=== PATIENT | male | born 1960 | race Caucasian/White ===

== ENCOUNTER 2021-06-26 20:46 | Emergency (ER) | payer SELFPAY ==
[2021-06-26] MEDS ORDERED: LORazepam 2 MG/ML VIAL ONE (23:30)
[2021-06-26] MEDS ORDERED: NA CHLORIDE 0.9% 500 ML ONE (23:31)
[2021-06-26] MEDS ORDERED: KETOROLAC 30 MG/ML INJ ONE (23:31)
[2021-06-26 23:34] LABS: Absolute Lymphocytes (CBC) 1.5 K/uL (0.7-4.9); Basophils % 0.8 % (0-1.3); Hematocrit 47.5 % (39.6-49.0); Lymphocytes % 16.9 % (15.3-44.8); MPV 7.7 fL (7.6-11.3); RBC Red Blood Cell Count 5.61 M/uL (4.33-5.43)
[2021-06-26 23:35] LABS: Protime INR 1.23
[2021-06-26 23:52] LABS: Albumin 2.9 g/dL (3.4-5.0); Bilirubin Direct 0.2 mg/dL (0-0.2); Bilirubin Total 0.4 mg/dL (0.2-1.0); Magnesium 1.9 mg/dL (1.8-2.4); Potassium 4.2 mmol/L (3.5-5.1); Protein, Total 6.3 g/dL (6.4-8.2); Troponin (Emerg Dept Use Only) 0.02 ng/mL (0.0-0.045)
[2021-06-27] MEDS ORDERED: NA CHLORIDE 0.9% 500 ML ONE (01:18)
[2021-06-27 01:46] LABS: Urine Blood Negative (Negative); Urine Glucose Negative (Negative); Urine Protein Negative (Negative); Urine Specific Gravity 1.025 (1.005-1.030)
[2021-06-27 02:12] LABS: Barbiturates NEGATIVE (NEGATIVE); Benzodiazepines NEGATIVE (NEGATIVE); Cocaine NEGATIVE (NEGATIVE); METHAMPHETAM POSITIVE (NEGATIVE); Methadone NEGATIVE (NEGATIVE); Opiates NEGATIVE (NEGATIVE); Phencyclidine NEGATIVE (NEGATIVE); THC Cannibis NEGATIVE (NEGATIVE)
[2021-06-27 02:49] LABS: Urine Amorphous Sediment 2+ /HPF (NONE SEEN); Urine Bacteria <20 /HPF (NONE SEEN); Urine RBC NONE SEEN /HPF (NONE SEEN)
--- NOTE | 2021-06-27 03:51 | EDPHYS ---
Physician Documentation [facility] Name: Get Ceballos Age: 60 yrs Sex: Male : 1960 Arrival Date: 06/26/2021 Time: 20:47 Bed 12 Private MD: ED Physician Misael Yousif HPI: 06/26 23:00 This 60 yrs old Male presents to ER via Ambulatory with complaints of Skin cp Sore(s), Urinary Problem, Fall Injury, Shoulder Pain, Pain With Urination. 23:00 The patient or guardian complains of an injury, pain, that is acute. cp 23:00 right shoulder. Context: The problem was sustained at home, resulted from a fall, from cp a standing position. Onset: The symptoms/episode began/occurred today. The patient presents with urinary symptoms, dysuria, difficulty voiding. 23:00 Patient reports increasing difficulty voiding and burning with urination recently. cp While standing to urinate tonight, patient reports LOC and falling to ground striking right shoulder. Patient admits to methamphetamine use with last use 2 days ago. Patient denies chest and/or abdominal pain. Patient also concerned about "skin sores". Historical: - Allergies: 21:16 NKA; vg1 - PMHx: 21:16 Hypertension; vg1 - Immunization history:: Adult Immunizations up to date. - Social history:: Smoking status: Patient reports the use of cigarette tobacco products, smokes one-half pack cigarettes per day. ROS: 23:05 Constitutional: Negative for body aches, chills, fever, poor PO intake. cp 23:05 Eyes: Negative for injury, pain, redness, and discharge. cp 23:05 Cardiovascular: Negative for chest pain, edema, palpitations. 23:05 Respiratory: Negative for cough, shortness of breath, wheezing. 23:05 Abdomen/GI: Negative for abdominal pain, nausea, vomiting, and diarrhea. 23:05 : Positive for difficulty urinating, Negative for testicular pain 23:05 MS/extremity: Positive for injury or acute deformity, pain, of the right shoulder and right scapula, painful ROM. 23:05 Neuro: Negative for altered mental status, dizziness, headache, weakness. 23:05 All other systems are negative. Exam: 23:10 Constitutional: The patient appears in no acute distress, alert, awake, cp non-diaphoretic, non-toxic, well developed, well nourished, anxious. 23:10 Head/Face: Normocephalic, atraumatic. cp 23:10 Eyes: Periorbital structures: appear normal, Pupils: equal, round, and reactive to light and accomodation, Extraocular movements: intact throughout, Conjunctiva: normal, no exudate, no injection, Sclera: no appreciated abnormality, Lids and lashes: appear normal, bilaterally. 23:10 ENT: External ear(s): are unremarkable, Ear canal(s): are normal, clear, TM's: dullness, bilaterally, Nose: is normal, Mouth: Lips: moist, Oral mucosa: moist, Posterior pharynx: Airway: no evidence of obstruction, patent. 23:10 Neck: C-spine: vertebral tenderness, is not appreciated, crepitus, is not appreciated, ROM/movement: pain, is not appreciated, limited range of motion, is not appreciated. 23:10 Chest/axilla: Inspection: normal, Palpation: is normal, no crepitus, no tenderness. 23:10 Cardiovascular: Rate: normal, Rhythm: regular, Edema: is not appreciated, JVD: is not appreciated. 23:10 Respiratory: the patient does not display signs of respiratory distress, Respirations: normal, no use of accessory muscles, no retractions, labored breathing, is not present, Breath sounds: are clear throughout, no decreased breath sounds, no stridor, no wheezing. 23:10 Abdomen/GI: Inspection: abdomen appears normal, Palpation: abdomen is soft and non-tender, in all quadrants. 23:10 Back: pain, that is moderate, of the right scapular area, ROM is normal, vertebral tenderness, is not appreciated. 23:10 Musculoskeletal/extremity: Extremities: grossly normal except: noted in the right shoulder: pain, tenderness, There is no evidence of decreased ROM, deformity, ROM: limited passive range of motion due to pain, in the right shoulder. 23:10 Neuro: Orientation: to person, place \\T\\ time. Mentation: is normal, Motor: moves all fours, strength is normal, Gait: is steady. 23:10 Psych: Behavior/mood is cooperative, anxious, Affect is animated, Judgement / Insight is normal. Delusions/hallucinations are not present. 23:43 ECG was reviewed by the Attending Physician. cp Vital Signs: 21:13 BP 138 / 92; Pulse 90; Resp 18; Temp 99.0(O); Pulse Ox 95% on R/A; Weight 104.33 kg; vg1 Height 5 ft. 11 in. (180.34 cm); Pain 10/10; 23:41 BP 119 / 98; Pulse 85; Resp 20 S; Pulse Ox 96% on R/A; bb 06/27 01:37 BP 148 / 88; Pulse 81; Resp 18; Pulse Ox 96% on R/A; bb 03:00 BP 160 / 102; Pulse 80; Resp 18 S; Pulse Ox 95% on R/A; bb 05:25 BP 144 / 89; Pulse 73; Resp 16 S; Pulse Ox 97% on R/A; bb 06/26 21:13 Body Mass Index 32.08 (104.33 kg, 180.34 cm) vg1 MDM: 06/26 22:40 Patient medically screened. cp 23:00 Differential diagnosis: Anterior dislocation with fracture, Anterior dislocation cp without fracture, Posterior dislocation with fracture, Posterior dislocation without fracture, humeral head fracture, glenoid fracture, tendonitis, UTI, urinary retention, prostatitis, cervical spine fracture, scapula fracture. 06/27 03:47 Data reviewed: vital signs, nurses notes, lab test result(s), EKG, radiologic studies, cp CT scan, plain films, and as a result, I will discharge patient. Test interpretation: by ED physician or midlevel provider: ECG, plain radiologic studies. Counseling: I had a detailed discussion with the patient and/or guardian regarding: the historical points, exam findings, and any diagnostic results supporting the discharge/admit diagnosis, lab results, radiology results, the need for outpatient follow up, a family practitioner, to return to the emergency department if symptoms worsen or persist or if there are any questions or concerns that arise at home. 03:50 Response to treatment: the patient's symptoms have markedly improved after treatment. cp 03:50 ED course: VSS. Labs, EKG and radiology studies reviewed. Xrays negative for fracture. cp Will discharge to home for continued monitoring. 06/26 22:53 Order name: Basic Metabolic Panel; Complete Time: 00:12 cp 06/27 00:12 Interpretation: Normal except: GFR 70. cp 06/26 22:53 Order name: CBC with Diff; Complete Time: 23:42 cp 08/ 23:42 Interpretation: Normal except: RBC 5.61; MCV 84.7; RDW 19.2. cp / 22:53 Order name: LFT's; Complete Time: 00:12 cp /16 00:12 Interpretation: Normal except: AST 45; TP 6.3; ALB 2.9; A/G 0.9. cp / 22:53 Order name: Magnesium; Complete Time: 00:12 cp 06/26 22:53 Order name: NT PRO-BNP; Complete Time: 00:12 cp / 22:53 Order name: PT-INR; Complete Time: 23:42 cp /16 02:31 Interpretation: PT 14.2; Reviewed. / 22:53 Order name: CT Head C Spine / 22:53 Order name: XRAY Shoulder RIGHT 2 view / 22:53 Order name: Troponin (emerg Dept Use Only); Complete Time: 00:12 cp / 00:12 Interpretation: Within normal limits: TROPED 0.02. / 22:53 Order name: XRAY Chest (1 view) cp / 22:53 Order name: UDS; Complete Time: 02:30 cp /16 02:31 Interpretation: Normal except: METHAMPHETAMINE POSITIVE. cp / 23:42 Order name: Urine Microscopic Only; Complete Time: 02:51 cp /16 02:51 Interpretation: Normal except: AMORPH 2+. cp /16 01:02 Order name: Scapula Right XRAY cp / 01:46 Order name: Urine Dipstick-Ancillary; Complete Time: 02:30 EDMS 06/26 22:53 Order name: EKG; Complete Time: 22:54 cp / 22:53 Order name: Cardiac monitoring; Complete Time: 02:15 cp 06/26 22:53 Order name: EKG - Nurse/Tech; Complete Time: 23:40 cp 06/26 22:53 Order name: IV Saline Lock; Complete Time: 23:40 cp 06/26 22:53 Order name: Labs collected and sent; Complete Time: 23:40 cp 06/26 22:53 Order name: O2 Per Protocol; Complete Time: 23:40 cp 06/26 22:53 Order name: O2 Sat Monitoring; Complete Time: 23:40 cp 06/26 23:42 Order name: Urine Dipstick-Ancillary (obtain specimen); Complete Time: 01:37 06/27 03:54 Order name: Sling cp EC/15 23:43 Rate is 82 beats/min. Rhythm is regular. VT interval is normal. QRS interval is cp prolonged at 142 msec. QT interval is normal. T waves are Inverted in leads III, aVR. Interpreted by me. Reviewed by me. Administered Medications: 23:15 Drug: NS 0.9% 500 ml Route: IV; Rate: bolus; Site: right forearm; bb 06/27 00:00 Follow up: IV Status: Completed infusion; IV Intake: 500ml 06/26 23:15 Drug: Ketorolac 15 mg Route: IVP; Site: right forearm; 06/27 00:53 Follow up: Response: No adverse reaction 06/26 23:17 Drug: Ativan (LORazepam) 1 mg Route: IVP; Site: right forearm; 06/27 00:00 Follow up: Response: Marked relief of symptoms bb 00:57 Drug: NS 0.9% 500 ml Route: IV; Rate: bolus; Site: right forearm; 01:37 Follow up: IV Status: Completed infusion; IV Intake: 500ml bb Disposition: 07:18 Co-signature as Attending Physician, Misael Yousif MD. [email or web address] Disposition Summary: 06/27/21 03:51 Discharge Ordered Location: Home cp Problem: new cp Symptoms: have improved cp Condition: Stable cp Diagnosis - Pain in right shoulder cp - Disorder of urinary system, unspecified cp - Adverse effect of amphetamines cp Followup: cp - With: Private Physician - When: 2 - 3 days - Reason: Recheck today's complaints Followup: cp - With: Artem Hester MD - When: 2 - 3 days - Reason: difficulty urinating Discharge Instructions: - Discharge Summary Sheet cp - Shoulder Pain cp - Shoulder Range of Motion Exercises cp - Methamphetamines Use Disorder cp - Heat Therapy cp - Benign Prostatic Hyperplasia cp - Prostate Cancer Screening cp Forms: - Medication Reconciliation Form cp - Thank You Letter cp - Antibiotic Education cp - Prescription Opioid Use cp Prescriptions: - Lidoderm 5 % Topical adhesive patch,medicated - apply 1 patch by TOPICAL route once daily; 1 box; Refills: 0, Product Selection cp Permitted - Naprosyn 500 mg Oral Tablet - take 1 tablet by ORAL route 2 times per day take with food; 20 tablet; Refills: cp 0, Product Selection Permitted Signatures: Dispatcher [employer] Juana White RN RN bb Jj Slater PA PA cp Garcia, Victoria, RN RN vg1 Misael Yousif MD MD [email or web address] Corrections: (The following items were deleted from the chart) 01:37 00:47 Bladder Scanner ordered. olga gipson
--- NOTE | 2021-06-27 03:51 | ER ---
Nurse's Notes [facility] Name: Get Ceballos Age: 60 yrs Sex: Male : 1960 Arrival Date: 06/26/2021 Time: 20:47 Bed 12 Private MD: Diagnosis: Pain in right shoulder;Disorder of urinary system, unspecified;Adverse effect of amphetamines Presentation: 06/26 21:13 Chief complaint: Patient states: Pt has has reddish/orange color urine for about two vg1 weeks, states julio to urinate, urinates frequently and sometimes has dribbling. Stated today fainted while urinating and woke up on the floor, states incident happened around 1930. Denies hitting head. States Right Shoulder hurts, rates pain 10/10. Also states has been vomiting for about 3 days and has sores all over body. Coronavirus screen: Client denies travel out of the [place] in the last 14 days. Ebola Screen: Patient negative for fever greater than or equal to 101.5 degrees Fahrenheit, and additional compatible Ebola Virus Disease symptoms. Initial Sepsis Screen: Does the patient meet any 2 criteria? No. Patient's initial sepsis screen is negative. Does the patient have a suspected source of infection? No. Patient's initial sepsis screen is negative. Risk Assessment: Do you want to hurt yourself or someone else? Patient reports no desire to harm self or others. Onset of symptoms was June 19, 2021. 21:13 Method Of Arrival: Ambulatory vg1 21:13 Acuity: JOANNA 3 vg1 Triage Assessment: 21:16 General: Appears in no apparent distress. uncomfortable, Behavior is cooperative, vg1 anxious. Pain: Complains of pain in right shoulder Pain currently is 10 out of 10 on a pain scale. Pain began 2 hours ago. Historical: - Allergies: 21:16 NKA; vg1 - PMHx: 21:16 Hypertension; vg1 - Immunization history:: Adult Immunizations up to date. - Social history:: Smoking status: Patient reports the use of cigarette tobacco products, smokes one-half pack cigarettes per day. Screenin:47 Abuse screen: Denies threats or abuse. Nutritional screening: No deficits noted. bb Tuberculosis screening: No symptoms or risk factors identified. Fall Risk None identified. Assessment: 22:47 General: Appears in no apparent distress. Behavior is anxious. Neuro: Level of bb Consciousness is awake, alert, obeys commands, Oriented to person, place, time, situation. Cardiovascular: Capillary refill < 3 seconds Patient's skin is warm and dry. Respiratory: Respiratory effort is even, unlabored, Respiratory pattern is regular. GI: No deficits noted. No signs and/or symptoms were reported involving the gastrointestinal system. Derm: sores all over. Musculoskeletal: Circulation, motion, and sensation intact. 23:42 Reassessment: Patient is alert, oriented x 3, equal unlabored respirations, skin bb warm/dry/pink. IV site intact, patent with fluids infusing awaiting diagnostic results. 06/27 01:37 Reassessment: Patient is alert, oriented x 3, equal unlabored respirations, skin bb warm/dry/pink. urine sample collected, IV site intact, patent. 02:59 Reassessment: Patient is alert, oriented x 3, equal unlabored respirations, skin bb warm/dry/pink. pt ambulated with steady gait to bathroom awaiting radiology results. 05:24 Reassessment: pt appears to be sleeping, eyes closed, resp unlabored, arouses easily, bb verbalized understanding of and agrees to plan of care discharge instructions given pt ambulated with steady gait to exit. Vital Signs: 06/26 21:13 BP 138 / 92; Pulse 90; Resp 18; Temp 99.0(O); Pulse Ox 95% on R/A; Weight 104.33 kg; vg1 Height 5 ft. 11 in. (180.34 cm); Pain 10/10; 23:41 BP 119 / 98; Pulse 85; Resp 20 S; Pulse Ox 96% on R/A; bb 06/27 01:37 BP 148 / 88; Pulse 81; Resp 18; Pulse Ox 96% on R/A; bb 03:00 BP 160 / 102; Pulse 80; Resp 18 S; Pulse Ox 95% on R/A; bb 05:25 BP 144 / 89; Pulse 73; Resp 16 S; Pulse Ox 97% on R/A; bb 06/26 21:13 Body Mass Index 32.08 (104.33 kg, 180.34 cm) vg1 ED Course: 06/26 20:47 Patient arrived in ED. cf2 21:16 Triage completed. vg1 21:16 Arm band placed on. vg1 22:37 [facility]. cp 22:37 Yvon Rivas MD is Attending Physician. cp 22:37 Misael Yousif MD is Attending Physician. cp 22:47 Juana Burk, RN is Primary Nurse. bb 22:47 Patient has correct armband on for positive identification. Placed in gown. Bed in low bb position. Call light in reach. Side rails up X 1. 23:15 Initial lab(s) drawn, by me, sent to lab. Inserted saline lock: 18 gauge in right bb forearm, using aseptic technique. Blood collected. 23:40 XRAY Chest (1 view) Sent. bb 23:42 XRAY Shoulder RIGHT 2 view In Process Unspecified. EDMS 23:42 XRAY Chest (1 view) In Process Unspecified. EDMS 06/27 00:22 CT Head C Spine In Process Unspecified. EDMS 01:37 Urine collected: clean catch specimen, clear. bb 01:38 No provider procedures requiring assistance completed. bb 02:59 Scapula Right XRAY In Process Unspecified. EDMS 03:53 Artem Hester MD is Referral Physician. cp 05:24 IV discontinued, intact, bleeding controlled, No redness/swelling at site. Pressure bb dressing applied. Administered Medications: 06/26 23:15 Drug: NS 0.9% 500 ml Route: IV; Rate: bolus; Site: right forearm; bb 06/27 00:00 Follow up: IV Status: Completed infusion; IV Intake: 500ml bb 06/26 23:15 Drug: Ketorolac 15 mg Route: IVP; Site: right forearm; bb 06/27 00:53 Follow up: Response: No adverse reaction bb 06/26 23:17 Drug: Ativan (LORazepam) 1 mg Route: IVP; Site: right forearm; bb 06/27 00:00 Follow up: Response: Marked relief of symptoms bb 00:57 Drug: NS 0.9% 500 ml Route: IV; Rate: bolus; Site: right forearm; bb 01:37 Follow up: IV Status: Completed infusion; IV Intake: 500ml bb Intake: 00:00 IV: 500ml; Total: 500ml. bb 01:37 IV: 500ml; Total: 1000ml. bb Outcome: 03:51 Discharge ordered by . cp 05:25 Discharged to home ambulatory. bb 05:25 Condition: stable 05:25 Discharge instructions given to patient, Instructed on discharge instructions, follow up and referral plans. medication usage, Demonstrated understanding of instructions, follow-up care, medications, Prescriptions given X 2. 05:25 Patient left the ED. bb Signatures: Dispatcher [employer] EDJuana Mejía RN RN bb Jj Slater PA PA cp Frazier, Celesta cf2 Drea Amador RN RN vg1
[2021-06-27 05:37] VITALS: TEMP 99
[2021-06-27 05:44] VITALS: BP 144/89; O2SAT 97
--- NOTE | 2021-06-27 07:18 | RAD REPORT ---
EXAM DESCRIPTION: RAD - Chest Single View - 06/26/2021 11:42 pm CLINICAL HISTORY: right shoulder pain COMPARISON: Chest Single View dated 02/11/2017; Chest Single View dated 05/31/2016; Chest Pa And Lat (2 Views) dated 04/20/2016; CHEST PA AND LAT 2 VIEW dated 10/24/2015 FINDINGS: No evidence of edema or pneumonia. Heart size is upper limits of normal.No acute osseous a bnormality. No significant pleural effusions or pneumothorax. IMPRESSION: No acute cardiopulmonary disease.
--- NOTE | 2021-06-27 07:18 | RAD REPORT ---
EXAM DESCRIPTION: RAD - Shoulder Right 2 View - 06/26/2021 11:42 pm CLINICAL HISTORY: PAIN COMPARISON: Shoulder Right 2 View dated 09/06/2015 FINDINGS: No right shoulder fracture or dislocation is identified. IMPRESSION: No right shoulder fracture or dislocation.
--- NOTE | 2021-06-27 13:31 | RAD REPORT ---
EXAM DESCRIPTION: CT - Head C Spine Mpr Wo Con - 06/27/2021 7:15 am CLINICAL HISTORY: 60 years Male, PAIN COMPARISON: None. FINDINGS: No evidence of an acute fracture of the right scapula. No dislocation. Visualized right lung is clear. Small metallic density in the soft tissues near the mid right humerus is present which could represen t a foreign body. IMPRESSION: 1. No evidence for an acute fracture of the right scapula. 2. Small metallic density in the soft tissues near the mid right humerus could represent a foreign body. Electronically signed by: Cj Perez MD 06/27/2021 3:19 AM CDT Due to temporary technical issues with the PACS/Fluency reporting system, reports are being signed by the in house radiologist without review as a courtesy to ensure prompt reporting. The interpreting r adiologist is fully responsible for the content of the report.
--- NOTE | 2021-06-27 13:44 | RAD REPORT ---
EXAM DESCRIPTION: RAD - Scapula Right - 06/27/2021 2:59 am CLINICAL HISTORY: 60 years Male, PAIN COMPARISON: None. FINDINGS: No evidence of an acute fracture of the right scapula. No dislocation. Visualized right lung is clear. Small metallic density in the soft tissues near the mid right humerus is present which could represen t a foreign body. IMPRESSION: 1. No evidence for an acute fracture of the right scapula. 2. Small metallic density in the soft tissues near the mid right humerus could represent a foreign body. Electronically signed by: Cj Perez MD 06/27/2021 3:19 AM CDT Due to temporary technical issues with the PACS/Fluency reporting system, reports are being signed by the in house radiologist without review as a courtesy to ensure prompt reporting. The interpreting r adiologist is fully responsible for the content of the report.
== END 2021-06-27 05:25 | disposition home or self-care (01) ==
LOC: ER 20:46
DX: M25.511 Pain in right shoulder (principal); N39.9 Disorder of urinary system, unspecified; T43.625A Adverse effect of amphetamines, initial encounter; W18.30XA Fall on same level, unspecified, initial encounter; Y92.009 Unspecified place in unspecified non-institutional (private) residence as the place of occurrence of the external cause; I10 Essential (primary) hypertension; F17.210 Nicotine dependence, cigarettes, uncomplicated
CPT/HCPCS: 36415; 70450; 71045; 72125; 73010; 80048; 80076; 80307; 81003; 81015; 83735; 83880; 84484; 85025; 85610; 93005; 96361; 96374; 96375; 99284; J7040

== ENCOUNTER 2021-10-14 08:47 | Emergency (ER) | payer SELFPAY ==
[2021-10-14 09:13] LABS: Absolute Lymphocytes (CBC) 1.2 K/uL (0.7-4.9); Basophils % 0.7 % (0-1.3); Hematocrit 55.8 % (39.6-49.0); Lymphocytes % 14.1 % (15.3-44.8); RBC Red Blood Cell Count 6.24 M/uL (4.33-5.43)
[2021-10-14 09:23] LABS: Protime INR 1.24
[2021-10-14 09:43] LABS: Albumin 2.9 g/dL (3.4-5.0); Bilirubin Direct 0.3 mg/dL (0-0.2); Bilirubin Total 0.7 mg/dL (0.2-1.0); Magnesium 2.1 mg/dL (1.8-2.4); Potassium 4.5 mmol/L (3.5-5.1); Protein, Total 6.8 g/dL (6.4-8.2); Troponin (Emerg Dept Use Only) 0.04 ng/mL (0.0-0.045)
--- NOTE | 2021-10-14 10:16 | RAD REPORT ---
EXAM DESCRIPTION: CT - Chest For Pe Angio - 10/14/2021 10:00 am CLINICAL HISTORY: chest pain, sob COMPARISON: CTANGIO CHEST FOR PE dated 07/01/2015; Abdomen Pelvis W Contrast dated 10/14/2021 FINDINGS: Chest Wall: No suspicious thyroid nodules or pathologic lymphadenopathy. Lungs: Mild bronchial wall thickening. Pleura: No significant effusions or pneumothorax. Mediastinum/isha: No pathologic lymphadenopathy. Pulmonary arteries/Aorta: No filling defect identified. No aortic aneurysm. Heart: No significant pericardial effusion. Normal heart size. Upper abdomen: No acute abnormality. Bones: No acute abnormality. All CT scans are performed using dose optimization technique as appropriate and may include automated exposure control or mA/KV adjustment according to patient size. IMPRESSION: Negative for pulmonary embolism. Mild bronchial wall thickening which is nonspecific. No other acute findings are identified.
--- NOTE | 2021-10-14 10:31 | RAD REPORT ---
EXAM DESCRIPTION: CTAbdomen Pelvis W Contrast - 10/14/2021 10:00 am CLINICAL HISTORY: ABD PAIN COMPARISON: Chest For Pe Angio dated 10/14/2021 TECHNIQUE: CT of the abdomen and pelvis was performed. All CT scans are performed using dose optimization technique as appropriate and may include automated exposure control or mA/KV adjustment according to patient size. FINDINGS: Lower chest: Reference same-day chest CT. Liver: No acute abnormality or suspicious lesions. Biliary: No biliary ductal dilatation. Stomach: No significant focal abnormality. Duodenum: No significant focal abnormality. Pancreas: No significant abnormality. Spleen: No significant abnormality. Adrenal: No suspicious lesions. Kidney/ureter: No hydronephrosis. No renal calculi. Retroperitoneum: No retroperitoneal adenopathy. Vascular: No aneurysm. Bowel: No significant focal abnormality. Normal appendix. Peritoneum: No ascites or free air. Bladder: Grossly unremarkable. Reproductive: No adnexal masses. Bones: No acute fracture. Other: n/a IMPRESSION: No acute intra-abdominal or pelvic finding.
--- NOTE | 2021-10-14 10:31 | RAD REPORT ---
EXAM DESCRIPTION: RAD - Chest Single View - 10/14/2021 10:14 am CLINICAL HISTORY: SOB COMPARISON: Chest Single View dated 06/26/2021; Chest Single View dated 02/11/2017; Chest Single View d ated 05/31/2016; Chest Pa And Lat (2 Views) dated 04/20/2016 FINDINGS: Lines: None. Lungs: No evidence of edema or pneumonia. Pleural: No significant pleural effusions or pneumothorax. Cardiac: The heart size is within normal limits. Bones: No acute fractures. Other: IMPRESSION: No acute cardiopulmonary disease.
--- NOTE | 2021-10-14 14:46 | ER ---
Nurse's Notes [facility] Name: Get Ceballos Age: 60 yrs Sex: Male : 1960 Arrival Date: 10/14/2021 Time: 08:50 Bed 7 Private MD: Diagnosis: Chest pain, unspecified Presentation: 10/14 08:45 Chief complaint: EMS states: pt at intermediate c/o chest pressure and sob that started last tw2 night. pt c/o nauseousness as well. initially was hypertensive at 140/110. we gave 325 mg ASA, 1 spray Nitro, and 4 mg Zofran IM. BP decreased with the Nitro. Pain and breathing improved as well. ekg showed elevation in leads V3 \\T\\ V4. Coronavirus screen: diarrhea, nausea, shortness of breath, Client presents with at least one sign or symptom that may indicate coronavirus-19. Standard/surgical mask placed on the client. Provider contacted for isolation considerations. Ebola Screen: Patient denies travel to an Ebola-affected area in the 21 days before illness onset. Initial Sepsis Screen: Does the patient meet any 2 criteria? No. Patient's initial sepsis screen is negative. Does the patient have a suspected source of infection? No. Patient's initial sepsis screen is negative. Risk Assessment: Do you want to hurt yourself or someone else? Patient reports no desire to harm self or others. Note pt is in hand cuffs with PD office at bedside. Onset of symptoms was October 13, 2021. 08:45 Method Of Arrival: EMS: [facility] tw2 08:45 Acuity: JOANNA 3 tw2 08:50 Note provider Isael DAVENPORT at bedside at this time. tw2 Triage Assessment: 08:57 General: Appears in no apparent distress. Behavior is cooperative, appropriate for age, tw2 anxious. Pain: Complains of pain in chest. Neuro: Level of Consciousness is awake, alert, obeys commands, Oriented to person, place, time, situation. Cardiovascular: Reports chest pain, shortness of breath. Respiratory: Airway is patent Respiratory effort is even, unlabored, Respiratory pattern is regular, symmetrical. GI: Reports nausea. : No signs and/or symptoms were reported regarding the genitourinary system. Musculoskeletal: Circulation, motion, and sensation intact. Range of motion: limited in hands d/t hand cuffs. Historical: - Allergies: 08:57 NKA; tw2 - Home Meds: 08:59 unknown BP med [Active]; tw2 - PMHx: 08:57 Hypertension; tw2 - Immunization history:: Adult Immunizations. - Social history:: Smoking status: . Screenin:59 Abuse screen: Denies threats or abuse. Nutritional screening: No deficits noted. tw2 Tuberculosis screening: No symptoms or risk factors identified. Fall Risk None identified. Assessment: 08:58 Reassessment: see triage assessment. tw2 08:59 Pain: Pain does not radiate. Pain began 1 day ago. tw2 09:45 Reassessment: Patient appears in no apparent distress at this time. No changes from tw2 previously documented assessment. Patient and/or family updated on plan of care and expected duration. Pain level reassessed. Patient is alert, oriented x 3, equal unlabored respirations, skin warm/dry/pink. 10:45 Reassessment: Patient appears in no apparent distress at this time. Patient and/or tw2 family updated on plan of care and expected duration. Pain level reassessed. Patient is alert, oriented x 3, equal unlabored respirations, skin warm/dry/pink. pt appears to be sleeping at this time. 11:49 Reassessment: Patient appears in no apparent distress at this time. No changes from tw2 previously documented assessment. Patient and/or family updated on plan of care and expected duration. Pain level reassessed. Patient is alert, oriented x 3, equal unlabored respirations, skin warm/dry/pink. 12:46 Reassessment: Patient appears in no apparent distress at this time. No changes from tw2 previously documented assessment. Patient and/or family updated on plan of care and expected duration. Pain level reassessed. Patient is alert, oriented x 3, equal unlabored respirations, skin warm/dry/pink. 13:46 Reassessment: Patient appears in no apparent distress at this time. Patient and/or tw2 family updated on plan of care and expected duration. Pain level reassessed. Patient is alert, oriented x 3, equal unlabored respirations, skin warm/dry/pink. 14:49 Reassessment: Patient appears in no apparent distress at this time. Patient and/or tw2 family updated on plan of care and expected duration. Pain level reassessed. Patient is alert, oriented x 3, equal unlabored respirations, skin warm/dry/pink. Vital Signs: 08:45 BP 121 / 78; Pulse 72; Resp 19; Temp 98.5(O); Pulse Ox 96% on R/A; Weight 111.13 kg tw2 (R); Height 5 ft. 11 in. (180.34 cm); 09:44 BP 119 / 97; Pulse 65; Resp 19; Pulse Ox 98% on R/A; tw2 10:44 BP 128 / 64; Pulse 70; Resp 17; Pulse Ox 97% on R/A; tw2 11:47 BP 138 / 77; Pulse 72; Resp 17; Pulse Ox 97% on R/A; tw2 12:45 BP 138 / 76; Pulse 71; Resp 17; Pulse Ox 97% on R/A; tw2 13:45 BP 137 / 79; Pulse 73; Resp 17; Pulse Ox 98% on R/A; tw2 14:49 BP 136 / 83; Pulse 74; Resp 17; Pulse Ox 97% on R/A; tw2 08:45 Body Mass Index 34.17 (111.13 kg, 180.34 cm) tw2 ED Course: 08:46 Bed in low position. Call light in reach. secured entrance monitor on. Pulse ox on. NIBP on. tw2 08:50 Patient arrived in ED. tw2 08:51 Isael Mcintyre PA is PHCP. [facility] 08:51 Steven Salvador MD is Attending Physician. jm 08:57 Triage completed. tw2 08:57 Arm band placed on. tw2 08:59 Patient maintains SpO2 saturation greater than 95% on room air. tw2 09:00 Brina Chan RN is Primary Nurse. tw2 09:01 Inserted saline lock: 20 gauge in left forearm, using aseptic technique. ,using aseptic tw2 technique. by JUNIOR Miranda Blood collected. 09:19 Troponin (emerg Dept Use Only) Sent. tp1 09:19 PT-INR Sent. tp1 09:19 NT PRO-BNP Sent. tp1 09:19 Magnesium Sent. tp1 09:19 CBC with Diff Sent. tp1 09:19 Basic Metabolic Panel Sent. tp1 10:00 CT Chest For PE Angio In Process Unspecified. EDMS 10:00 CT Abd/Pelvis - IV Contrast Only In Process Unspecified. EDMS 10:14 XRAY Chest (1 view) In Process Unspecified. EDMS 11:09 SARS-COV-2 RT PCR (Document "Date of Onset" if Symptomatic) Sent. cs9 11:09 Troponin (Emerg Dept Use Only) Sent. cs9 12:54 Troponin (emerg Dept Use Only): Draw at 1 pm Sent. tw2 13:51 Lab(s) recollected, by me, sent to lab. gd 14:50 No provider procedures requiring assistance completed. IV discontinued, intact. tw2 Administered Medications: No medications were administered Outcome: 14:45 Discharge ordered by . susan 14:51 Discharged to Law Enforcement tw2 14:51 Condition: stable 14:51 Discharge instructions given to patient, police, Instructed on discharge instructions, follow up and referral plans. Demonstrated understanding of instructions, follow-up care. 14:52 Patient left the ED. tw2 Signatures: Dispatcher [employer] EDMS Isael Mcintyre PA PA jmm Wise, Tara, RN RN tw2 Marlene Yap cs9 Donnie Poole, Katarzyna tp1
--- NOTE | 2021-10-14 14:46 | EDPHYS ---
Physician Documentation [facility] Name: Get Ceballos Age: 60 yrs Sex: Male : 1960 Arrival Date: 10/14/2021 Time: 08:50 Bed 7 Private MD: ED Physician Steven Salvador HPI: 10/14 08:51 This 60 yrs old Male presents to ER via EMS with complaints of Chest Pain > 30 y/o, jmm Shortness Of Breath. 08:51 The patient or guardian reports chest pain that is located primarily in the substernal [facility] area. Onset: gradually, 2 day(s) ago. The pain does not radiate. Associated signs and symptoms: Pertinent positives: shortness of breath. The chest pain is described as a pressure. Duration: The patient or guardian reports a single episode, that is still ongoing. Modifying factors: The symptoms are alleviated by nothing. the symptoms are aggravated by nothing. The patient has not experienced similar symptoms in the past. Historical: - Allergies: 08:57 NKA; tw2 - Home Meds: 08:59 unknown BP med [Active]; tw2 - PMHx: 08:57 Hypertension; tw2 - Immunization history:: Adult Immunizations. - Social history:: Smoking status: . ROS: 08:51 Constitutional: Negative for fever, chills, and weight loss. jmm 08:51 Cardiovascular: Positive for chest pain. 08:51 Respiratory: Positive for shortness of breath. 08:51 All other systems are negative. Exam: 08:51 Constitutional: This is a well developed, well nourished patient who is awake, alert, jmm and in no acute distress. Head/Face: atraumatic. Eyes: EOMI, no conjunctival erythema appreciated ENT: Moist Mucus Membranes Neck: Trachea midline, Supple 08:51 Cardiovascular: Regular rate and rhythm. No edema appreciated Respiratory: Normal respirations, no respiratory distress appreciated Abdomen/GI: Non distended, soft Back: Normal ROM Skin: General appearance color normal MS/ Extremity: Moves all extremities, no obvious deformities appreciated, no edema noted to the lower extremities Neuro: Awake and alert, normal gait Psych: Behavior is normal, Mood is normal, Patient is cooperative and pleasant 08:51 Chest/axilla: Palpation: tenderness, that is moderate, of the left lateral anterior chest. Vital Signs: 08:45 BP 121 / 78; Pulse 72; Resp 19; Temp 98.5(O); Pulse Ox 96% on R/A; Weight 111.13 kg tw2 (R); Height 5 ft. 11 in. (180.34 cm); 09:44 BP 119 / 97; Pulse 65; Resp 19; Pulse Ox 98% on R/A; tw2 10:44 BP 128 / 64; Pulse 70; Resp 17; Pulse Ox 97% on R/A; tw2 11:47 BP 138 / 77; Pulse 72; Resp 17; Pulse Ox 97% on R/A; tw2 12:45 BP 138 / 76; Pulse 71; Resp 17; Pulse Ox 97% on R/A; tw2 13:45 BP 137 / 79; Pulse 73; Resp 17; Pulse Ox 98% on R/A; tw2 14:49 BP 136 / 83; Pulse 74; Resp 17; Pulse Ox 97% on R/A; tw2 08:45 Body Mass Index 34.17 (111.13 kg, 180.34 cm) tw2 MDM: 08:51 Patient medically screened. [facility] 14:45 Data reviewed: vital signs, nurses notes. Counseling: I had a detailed discussion with [facility] the patient and/or guardian regarding: the historical points, exam findings, and any diagnostic results supporting the discharge/admit diagnosis, the need for outpatient follow up, to return to the emergency department if symptoms worsen or persist or if there are any questions or concerns that arise at home. 10/14 08:53 Order name: Basic Metabolic Panel; Complete Time: 09:45 [facility] 10/14 08:53 Order name: CBC with Diff; Complete Time: 09:28 [facility] 10/14 08:53 Order name: LFT's; Complete Time: 09:45 [facility] 10/14 08:53 Order name: Magnesium; Complete Time: 09:45 [facility] 10/14 08:53 Order name: NT PRO-BNP; Complete Time: 09:45 [facility] 10/14 08:53 Order name: PT-INR; Complete Time: 09:28 [facility] 10/14 08:53 Order name: Troponin (emerg Dept Use Only); Complete Time: 09:45 [facility] 10/14 08:53 Order name: XRAY Chest (1 view); Complete Time: 10:39 [facility] 10/14 08:53 Order name: EKG; Complete Time: 08:54 [facility] 10/14 08:53 Order name: CT Chest For PE Angio; Complete Time: 10:18 [facility] 10/14 09:28 Order name: CT Abd/Pelvis - IV Contrast Only; Complete Time: 10:39 [facility] 10/14 10:57 Order name: SARS-COV-2 RT PCR (Document "Date of Onset" if Symptomatic); Complete Time: [facility] :10/14 10:57 Order name: Troponin (emerg Dept Use Only): Draw at 1 pm [facility] 10/14 10:58 Order name: Troponin (Emerg Dept Use Only); Complete Time: 14:14 [facility] 10/14 08:53 Order name: Cardiac monitoring; Complete Time: 09:00 [facility] 10/14 08:53 Order name: EKG - Nurse/Tech; Complete Time: 09:00 [facility] 10/14 08:53 Order name: IV Saline Lock; Complete Time: 09:00 [facility] 10/14 08:53 Order name: Labs collected and sent; Complete Time: 09:00 [facility] 10/14 08:53 Order name: O2 Per Protocol; Complete Time: 09:00 [facility] 10/14 08:53 Order name: O2 Sat Monitoring; Complete Time: 09:00 [facility] 10/14 10:58 Order name: EKG - Nurse/Tech: perform at 1 pm; Complete Time: 12:55 [facility] 10/14 13:09 Order name: Labs - recollect needed: green top; Complete Time: 14:49 iw Administered Medications: No medications were administered Disposition: 10/15 07:02 Co-signature as Attending Physician, Steven Salvador MD I agree with the assessment and rn plan of care. Attestation: The patient's history, exam findings, diagnostics, and a summary of any interventions or procedures was reviewed in detail with Isael DAVENPORT. Disposition Summary: 10/14/21 14:45 Discharge Ordered Location: Home [facility] Condition: Stable [facility] Diagnosis - Chest pain, unspecified jmm Followup: jmm - With: Private Physician - When: 2 - 3 days - Reason: Recheck today's complaints, Continuance of care, Re-evaluation by your physician Discharge Instructions: - Discharge Summary Sheet [facility] - Nonspecific Chest Pain, Adult [facility] Forms: - Medication Reconciliation Form jmm - Thank You Letter jmm - Antibiotic Education jmm - Prescription Opioid Use susan Signatures: Dispatcher [employer] Isael Apple PA PA jmm Williams, Irene, Steven Thomas RN, MD MD rn Wise, Tara, RN RN tw2
[2021-10-14 15:10] VITALS: BP 136/83; O2SAT 97
== END 2021-10-14 14:52 | disposition home or self-care (01) ==
LOC: ER 08:47
DX: R07.9 Chest pain, unspecified (principal); I10 Essential (primary) hypertension; Z20.822 Contact with and (suspected) exposure to COVID-19
CPT/HCPCS: 36415; 71045; 71275; 74177; 80048; 80076; 83735; 83880; 84484; 85025; 85610; 93005; 99285; Q9967; U0003